=== PATIENT | male | born 1970 | race Caucasian/White ===

== ENCOUNTER 2018-06-25 08:59 | Day surgery (SDC) | payer OTHER ==
[2018-06-24 15:55] VITALS: BMI 27.6
[2018-06-25] MEDS ORDERED: Midazolam HCl 2 mg/2 ml Vial ONE (09:07)
[2018-06-25] MEDS ORDERED: Fentanyl 100 MCG/2 ML VIAL ONE ×4 (09:07→13:25)
[2018-06-25] MEDS ORDERED: Ropivacaine 0.2% HCl/PF 0 ML ONE (09:08)
[2018-06-25] MEDS ORDERED: CEFAZOLIN 2 GM/50 ML BAG ONE (10:01)
[2018-06-25] MEDS ORDERED: traMADol HCl 50 MG TAB PO PRN ×2 (10:51)
[2018-06-25] MEDS ORDERED: Ondansetron PF 4 MG/2 ML Vial IVP PRN (10:51)
[2018-06-25] MEDS ORDERED: Zolpidem Tartrate 5 MG TAB PO PRN (10:51)
[2018-06-25] MEDS ORDERED: HYDROcodone/Acetaminophen 10/325 mg Tablet PO PRN ×2 (10:51)
[2018-06-25] MEDS ORDERED: Ketorolac Tromethamine 30 MG/ML VIAL IVP PRN (10:51)
[2018-06-25] MEDS ORDERED: Promethazine HCl 25 MG/ML VIAL IM PRN (10:51)
[2018-06-25] MEDS ORDERED: Ropivacaine 0.2% 550 ML 550 ML NERVE BLCK SCH (10:51)
[2018-06-25] MEDS ORDERED: Fentanyl 100 MCG/2 ML VIAL SLOW IVP PRN (10:52)
[2018-06-25] MEDS ORDERED: Bupivacaine HCl 0.5%/Epinephrine 1:200,000/PF 30 ml Vial ONE (12:49)
--- NOTE | 2018-06-25 14:06 | OP ---
DATE OF PROCEDURE: 06/25/2018 PREOPERATIVE DIAGNOSIS: Biceps rupture, left. POSTOPERATIVE DIAGNOSIS: Biceps rupture, left. SHIFT SUPERVISOR: Herberth Nuñez PA-C. BLOOD LOSS: Minimal. SPECIMEN: None. DRAINS: None. COMPLICATION: None. DESCRIPTION OF PROCEDURE: Left arm was prepped and draped in usual sterile fashion. After exsanguination, tourniquet was inflated to 250 mmHg. I made an oblique incision in the antecubital fossa. This was carried down to the biceps tendon rupture, which was a split partial tear, freed the rest of the tendon off the radial tuberosity. Irrigated the wound. I wove FiberWire sutures in a Krackow type fashion through the biceps tendon and placed this through an Arthrex button. I then measured this tendon between 6 and 7, I thought I could pull it into a 6-hole, so I drilled a 6 unicortical hole and the radius of 4.5 to the distal side. Sutures were placed in the button appropriately and passed through the radius. I then pulled down the sutures and delivered down into the radius, tied over the radius, and then tied it back after passing a stitch through the distal biceps tendon, tied this again multiple times. I was able to extend the arm almost completely after this repair. This appeared to be a very solid repair. Tourniquet was released, irrigation performed, hemostasis obtained. Subcutaneous tissue closed with 2-0 Vicryl. Skin was closed with genyn. Sterile dressings were applied, and the patient placed in a long-arm posterior splint. There were no complications. Job ID: [id number]
[2018-06-25] MEDS ORDERED: PROPOFOL 200 MG/20 ML VIAL ONE (16:42)
[2018-06-25] MEDS ORDERED: Ketorolac Tromethamine 30 MG/ML VIAL ONE (16:42)
== END 2018-06-25 14:50 | disposition home or self-care (01) ==
LOC: SDC 08:59
PROVIDERS: ATTEND Orthopaedic Surgery
PROC: 0KQ80ZZ Repair Left Upper Arm Muscle, Open Approach (ICD-10-PCS; principal; 2018-06-25)
DX: S46.212A Strain of muscle, fascia and tendon of other parts of biceps, left arm, initial encounter (principal); Z79.899 Other long term (current) drug therapy; Y93.K9 Activity, other involving animal care
CPT/HCPCS: A4306; C1713; J0670; J1885; J2250; J2704; J2795; J3010